=== PATIENT | male | born 1955 | race Caucasian/White ===

== ENCOUNTER 2019-06-05 17:02 | Inpatient (IN) | payer MEDICAID ==
[~2019-06-05] VITALS: Ht 198.1 cm; Wt 97.3 kg
--- NOTE | 2019-06-05 17:43 | NUR ---
First contact with pt. Pt c/o SOB and cough x2 weeks. Pt states the cough is getting better but he feels increasing SOB with exertion. Pt speaking in full sentences, occasional dry cough noted. Pt also states he has been out of his Valsartan/HCTZ x1 month. Pt states this is due to being new in the area and having difficulty finding PCP. Pt provided hospital gown to change into and privacy to do so. Pt able to position self in bed without difficulty. Continuous heart, oxygen and BP Monitors applied, all safety measures observed. Dr. Bajwa at bedside to evaluate pt.
[2019-06-05] MEDS ORDERED: CARV12.52 PO (17:50)
[2019-06-05] MEDS ORDERED: ATOR20TA37 PO (17:50)
[2019-06-05] MEDS ORDERED: VALS1TAB25 PO (17:50)
[2019-06-05] MEDS ORDERED: ALBUTEROL/IPRATROPIUM 2.5MG/0.5MG, 3 ML ONE ×2 (17:54)
[2019-06-05] MEDS ORDERED: methylPREDNISolone SOD SUCC 125 MG/2 ML ONE (17:59)
[2019-06-05] MEDS ORDERED: SODIUM CHLORIDE FLUSH 10ML SYR IVF ONE (18:00)
[2019-06-05] MEDS ORDERED: methylPREDNISolone SOD SUCC 125 MG/2 ML IV ONE (18:00)
[2019-06-05] MEDS: ALBUTEROL/IPRATROPIUM 2.5MG/0.5MG, 3 ML NPPB SCH ×2 (18:07→18:40)
--- NOTE | 2019-06-05 18:11 | NUR ---
Pt states he feels like first breathing tx didn't really help, POC discussed that pt to receive a second breathing tx in 30 min after the first one. Pt verbalizes understanding of this. PIV inserted and pt medicated per MAR. Pt denies other needs.
[2019-06-05 18:14] LABS: BASOPHILS # (AUTO) 0.11 x10^3/uL (0-0.1); BASOPHILS % (AUTO) 2 % (0-1); EOSINOPHILS % (AUTO) 3 % (1-7); LYMPHOCYTES # (AUTO) 1.42 x10^3/uL (1-3.4); LYMPHOCYTES % (AUTO) 22 % (22-44); MD NO; MEAN CORPUSCULAR HEMOGLOBIN 34.5 pg (27.5-34.5); MEAN CORPUSCULAR HGB CONC 33.5 g/dL (33.2-36.2); MONOCYTES # (AUTO) 0.44 x10^3/uL (0.2-0.8); MONOCYTES % (AUTO) 7 % (2-9); NEUTROPHILS # (AUTO) 4.33 x10^3/uL (1.8-6.8); NEUTROPHILS % (AUTO) 67 % (42-75); PLATELET COUNT 206 x10^3/uL (130-400); RED BLOOD COUNT 3.75 x10^6/uL (4.38-5.82)
[2019-06-05 18:18] LABS: ALANINE AMINOTRANSFERASE 25 U/L (12-78); ALBUMIN 2.8 g/dL (3.4-5.0); ANION GAP 6 mmol/L (5-15); CALCIUM 8.6 mg/dL (8.5-10.1); CHLORIDE 102 mmol/L (98-107); CREATININE 0.89 mg/dL (0.7-1.3)
[2019-06-05 18:20] LABS: D-DIMER 1.99 ug/mlFEU (0.00-0.52); INTERNATIONAL NORMALIZED RATIO 1.01 (0.93-1.1); PROTHROMBIN TIME 10.7 Seconds (9.6-11.5)
[2019-06-05 18:22] LABS: ALKALINE PHOSPHATASE 73 U/L (45-117); BILIRUBIN,TOTAL 0.6 mg/dL (0.2-1.0); TOTAL PROTEIN 7.5 g/dL (6.4-8.2)
[2019-06-05 18:34] LABS: TROPONIN I 0.213 ng/mL (0.000-0.045)
--- NOTE | 2019-06-05 18:38 | NUR ---
CRITICAL TROPONIN OF 0.213 RECEIVED FROM LAB- DR. BALES MADE AWARE
--- NOTE | 2019-06-05 18:57 | NUR ---
REPORT FROM CALE OCAMPO, ASSUMING CARE OF PT AT THIS TIME.
--- NOTE | 2019-06-05 18:57 | NUR ---
Pt resting in bed, CHONG. Report to Leanna OCAMPO.
[2019-06-05] MEDS ORDERED: OMNIPAQUE 350 MG/ML, 100ML BOTTLE ONE (19:00)
[2019-06-05] MEDS ORDERED: SODIUM CHLORIDE FLUSH 10ML SYR IVF PRN (20:00)
--- NOTE | 2019-06-05 20:25 | NUR ---
HOSPITAL BED REQUESTED AT THIS TIME.
--- NOTE | 2019-06-05 20:52 | NUR ---
REPORT TO SUZE OCAMPO ALL QUESTIONS ADDRESSED.
--- NOTE | 2019-06-05 21:00 | NUR ---
Report received and care assumed. Pt denies CP or SOB at this time. Does c/o bilat leg pain--states this is chronic for him and he normally takes ASA for this. Pt requesting something for pain. ERP to be notified. Pt received clonidine s/t HTN--will continue to monitor BP. Awaiting hospitalist eval. Call light in reach.
[2019-06-05] MEDS ORDERED: HYDROcodone/APAP 5/325 TABLET PO ONE (21:21)
[2019-06-05] MEDS ORDERED: HYDROcodone/APAP 5/325 TABLET ONE (21:23)
--- NOTE | 2019-06-05 21:30 | NUR ---
Pt up to BR with steady gait. Medicated per JUN.
--- NOTE | 2019-06-05 21:57 | NUR ---
BP improved. Report to Rivera OCAMPO.
[2019-06-06 00:01] VITALS: BP 162/97
[2019-06-06] MEDS ORDERED: LIDODERM 5% PATCH TD PRN (00:30)
[2019-06-06] MEDS ORDERED: ACETAMINOPHEN 325 MG TABLET PO PRN (00:30)
[2019-06-06] MEDS ORDERED: DOCUSATE 100 MG CAPSULE PO PRN (00:30)
[2019-06-06] MEDS ORDERED: ONDANSETRON ODT 4 MG PO PRN (00:30)
[2019-06-06] MEDS ORDERED: ENALAPRILAT 1.25 MG/ML, 2ML IVPush PRN (00:30)
[2019-06-06] MEDS ORDERED: TEMAZEPAM 15 MG CAPSULE PO PRN (00:30)
[2019-06-06] MEDS ORDERED: ALBUTEROL/IPRATROPIUM 2.5MG/0.5MG, 3 ML NPPB PRN (01:00)
[2019-06-06 01:01] LABS: TROPONIN I 0.118 ng/mL (0.000-0.045)
[2019-06-06 02:43] VITALS: BP 166/96
[2019-06-06 07:39] LABS: ANION GAP 9 mmol/L (5-15); CALCIUM 8.4 mg/dL (8.5-10.1); CHLORIDE 101 mmol/L (98-107)
[2019-06-06 07:45] LABS: CREATININE 0.88 mg/dL (0.7-1.3); TROPONIN I 0.083 ng/mL (0.000-0.045)
[2019-06-06 07:52] LABS: MEAN CORPUSCULAR HEMOGLOBIN 36.6 pg (27.5-34.5); MEAN CORPUSCULAR HGB CONC 34.9 g/dL (33.2-36.2); MEAN CORPUSCULAR VOLUME 104.9 fL (81-97); PLATELET COUNT 196 x10^3/uL (130-400); RED BLOOD COUNT 3.57 x10^6/uL (4.38-5.82)
[2019-06-06 07:57] LABS: BASOPHILS # (AUTO) 0.01 x10^3/uL (0-0.1); BASOPHILS % (AUTO) 0 % (0-1); EOSINOPHILS % (AUTO) 0 % (1-7); LYMPHOCYTES # (AUTO) 0.69 x10^3/uL (1-3.4); LYMPHOCYTES % (AUTO) 16 % (22-44); MD NO; MONOCYTES # (AUTO) 0.06 x10^3/uL (0.2-0.8); MONOCYTES % (AUTO) 1 % (2-9); NEUTROPHILS # (AUTO) 3.61 x10^3/uL (1.8-6.8); NEUTROPHILS % (AUTO) 83 % (42-75)
[2019-06-06 08:41] VITALS: BP 179/104
[2019-06-06] MEDS: ENOXAPARIN 40 MG/0.4 ML SQ SCH (08:43)
[2019-06-06] MEDS: CARVEDILOL 12.5 MG TABLET PO SCH ×2 (08:43→23:07)
[2019-06-06] MEDS: VALSARTAN 160 MG TABLET PO SCH (08:43)
[2019-06-06] MEDS ORDERED: HYDROCHLOROTHIAZIDE 12.5 MG CAPSULE PO SCH (09:00)
[2019-06-06 12:38] VITALS: BP 150/87
[2019-06-06 13:03] LABS: MICROSCOPIC AUTO
[2019-06-06] MEDS ORDERED: MAGNESIUM SULFATE PMX 2GM/50ML 50 ML IV ONE (15:30)
[2019-06-06 18:30] VITALS: BP 154/97
[2019-06-06] MEDS: ATORVASTATIN 20 MG TABLET PO SCH ×2 (23:06)
[2019-06-07 00:42] VITALS: BP 180/104
[2019-06-07] MEDS ORDERED: ENALAPRILAT 1.25 MG/ML, 1ML ONE (00:47)
[2019-06-07 05:12] LABS: ANION GAP 6 mmol/L (5-15); CALCIUM 8.3 mg/dL (8.5-10.1); CHLORIDE 101 mmol/L (98-107); CHOLESTEROL, TOTAL 93 mg/dL (140-239); CREATININE 0.95 mg/dL (0.7-1.3); TRIGLYCERIDES 45 mg/dL (50-200); VLDL CHOLESTEROL 9 mg/dL (0-25)
[2019-06-07 05:18] LABS: CHOL/HDL RATIO 1.8; HDL CHOL % 57 % (26-37); HDL CHOLESTEROL (DIRECT) 53 mg/dL (40-60); LDL CHOLESTEROL,CALCULATED 31 mg/dL (54-169); LDL/HDL RATIO 0.6 (0.5-3.0)
[2019-06-07 07:43] VITALS: BP 165/99
[2019-06-07] MEDS: TAMSULOSIN 0.4 MG CAP.ER.24H PO SCH (10:13)
[2019-06-07] MEDS: CARVEDILOL 12.5 MG TABLET PO SCH ×2 (10:13→22:26)
[2019-06-07] MEDS: VALSARTAN 160 MG TABLET PO SCH (10:14)
[2019-06-07] MEDS: ENOXAPARIN 40 MG/0.4 ML SQ SCH (10:15)
[2019-06-07 12:27] VITALS: BP 151/90
[2019-06-07] MEDS ORDERED: CARV12.52 PO (13:08)
[2019-06-07] MEDS ORDERED: PHEN-418 PO (13:08)
[2019-06-07] MEDS ORDERED: VALS160T27 PO (13:08)
[2019-06-07] MEDS ORDERED: ATOR20TA37 PO (13:08)
[2019-06-07] MEDS ORDERED: ALBU8.5H8 INH (13:13)
[2019-06-07] MEDS ORDERED: TAMS-11 PO (13:15)
[2019-06-07] MEDS ORDERED: PHENAZOPYRIDINE 100 MG TABLET ONE (14:42)
[2019-06-07] MEDS ORDERED: PHENAZOPYRIDINE 200 MG TABLET PO ONE (15:00)
[2019-06-07] MEDS: OXYBUTYNIN CHLORIDE 5 MG TABLET PO PRN (18:07)
[2019-06-07 19:10] VITALS: BP 167/100
[2019-06-07] MEDS: ATORVASTATIN 20 MG TABLET PO SCH (22:26)
[2019-06-08 02:20] VITALS: BP 142/84
[2019-06-08 08:19] VITALS: BP 177/92
[2019-06-08] MEDS ORDERED: OXYB5TAB10 PO (08:23)
[2019-06-08] MEDS ORDERED: VALSARTAN 160 MG TABLET PO SCH (09:00)
[2019-06-08] MEDS: CARVEDILOL 12.5 MG TABLET PO SCH (09:23)
[2019-06-08] MEDS: ENOXAPARIN 40 MG/0.4 ML SQ SCH (09:23)
[2019-06-08] MEDS: TAMSULOSIN 0.4 MG CAP.ER.24H PO SCH (09:23)
[2019-06-08] MEDS: OXYBUTYNIN CHLORIDE 5 MG TABLET PO PRN (09:30)
[2019-06-08 11:54] VITALS: BP 191/98
[2019-06-08 13:17] VITALS: BP 157/98
[2019-06-08 14:09] VITALS: BP 124/88
[2019-06-08] MEDS ORDERED: PHENAZOPYRIDINE 100 MG TABLET ONE (14:30)
[2019-06-08] MEDS ORDERED: PHENAZOPYRIDINE 200 MG TABLET PO ONE (14:30)
== END 2019-06-08 15:00 | disposition home or self-care (01) | DRG 292 ==
LOC: ED 20:07 → EDIP 20:46 → 5SO 23:18 → DCLOUNGE 06-08 14:47
PROVIDERS: ADMIT Family Medicine; ATTEND Family Medicine
DX: I11.0 Hypertensive heart disease with heart failure (principal); E87.1 Hypo-osmolality and hyponatremia; N13.30 Unspecified hydronephrosis; E78.5 Hyperlipidemia, unspecified; E83.42 Hypomagnesemia; G89.29 Other chronic pain; I25.2 Old myocardial infarction; J43.9 Emphysema, unspecified; M19.90 Unspecified osteoarthritis, unspecified site; D50.9 Iron deficiency anemia, unspecified; D53.9 Nutritional anemia, unspecified; I35.8 Other nonrheumatic aortic valve disorders; N32.89 Other specified disorders of bladder; N40.0 Benign prostatic hyperplasia without lower urinary tract symptoms; Z82.5 Family history of asthma and other chronic lower respiratory diseases; Z87.891 Personal history of nicotine dependence; Z91.14 Patient's other noncompliance with medication regimen; I50.41 Acute combined systolic (congestive) and diastolic (congestive) heart failure
CPT/HCPCS: 36415; J7620; 71046; 71275; 76770; 80048; 80053; 80061; 81001; 82607; 83735; 83880; 84100; 84443; 84484; 85025; 85379; 85610; 85730; 87086; 93005; 93306; 94640; G0378; J1650; Q9967; J2930; J3475

== ENCOUNTER → 2020-05-12 | Outpatient (CLI) | payer MEDICARE, MEDICAID ==
[~2020-05-12] MED LIST: ALBU8.5H8 INH; APIX5TAB PO; ATOR20TA37 PO; CARV12.52 PO; CEFP200T PO; FINA5TAB4 PO; LOSA100T14 PO; OXYB5TAB10 PO; PHEN-418 PO; TAMS-11 PO; VALS160T27 PO; VALS1TAB25 PO
== END | disposition home or self-care (01) ==
LOC: CVU 13:35
PROVIDERS: ATTEND Internal Medicine Cardiovascular Disease
DX: I70.213 Atherosclerosis of native arteries of extremities with intermittent claudication, bilateral legs (principal); R07.89 Other chest pain; I25.10 Atherosclerotic heart disease of native coronary artery without angina pectoris
CPT/HCPCS: 93922